=== PATIENT | female | born 1980 | race Caucasian/White ===

== ENCOUNTER 2016-10-23 | Inpatient (IN) | payer OTHER ==
--- NOTE | ~2016-10-23 | PN ---
Unit #: [id number] #: [id number] Patient: VERA CLAYTON [id number] [facility] [address] [place] [address] [id number] MR#: [id number] NAME: VERA CLAYTON ROOM: P173 Age: 36 Sex: F Admission Date: 10/23/2016 : 1980 Attending Physician: Alma Delia Chau M.D. Admitting Physician: Alma Delia Chau M.D. Primary Care Physician: Katya Juarez PROGRESS NOTES DATE OF SERVICE: 10/24/2016 SUBJECTIVE Ms. Clayton is a 36-year-old white female who was seen today and chart was reviewed and case was discussed with the staff. She has been anxious, withdrawn, and rather seclusive to herself. Meanwhile, she has been cooperative with treatment recommendations and has been taking the medications and tolerating them fairly well. MENTAL STATUS EXAMINATION Young white female who was casually dressed with fair personal hygiene, appears to be in no acute distress or discomfort. She was awake and alert on interaction with intact orientation. Her mood was anxious with a congruent affect. She denies any suicidal or homicidal ideations. Her insight and judgment remain slightly impaired. TREATMENT PLAN 1. We will continue her on her current treatment protocol. We will monitor her response to the medications and make further adjustments as needed. 2. We will continue to follow up. Dictated by... Katya Rasmussen/keshav TD: 10/25/2016 23:22 JOB #: [id number] DEANDRA PROGRESS NOTES Page 1 of 1 X Alma Delia Chau MD PROGRESS NOTE
--- NOTE | ~2016-10-23 | DS ---
Unit #: [id number] #: [id number] Patient: VERA CLAYTON [id number] [facility] [address] [place] [address] [id number] I MR#: [id number] NAME: VERA CLAYTON ROOM: 73 Age: 36 Sex: F Admission Date: 10/23/2016 : 1980 Discharge Date: 10/29/2016 Attending Physician: Alma Delia Chau M.D. Primary Care Physician: Chavo Alcaraz M.D. DISCHARGE SUMMARY JOB NOTE: ADDENDUM ADDENDUM Ms. Clayton was scheduled to be discharged on 10/27/2016, however, she was reporting some persistent depression and psychosis and as such, discharge planning was cancelled and her medications were maintained and Seroquel was increased to 50 mg in the morning and afternoon and 300 mg at bedtime and with that adjustment, she was able to show a fairly decent therapeutic response with improvement in psychosis and was calm and was denying any thoughts of wanting to hurt herself and no acute psychosis was noted as well and she was not seen to be a danger to self or anyone else, and as such, it was decided that she will be discharged home and will continue treatment on an outpatient basis. DISCHARGE MEDICATIONS Seroquel 50 mg in the morning and afternoon and 300 mg at bedtime for psychosis. DISCHARGE CONDITION Stable. PROGNOSIS Fair. Dictated by... Katya Rasmussen/anthonyl TD: 10/29/2016 07:26 JOB #: [id number] DISCHARGE SUMMARY Page 1 of 1 X Alma Delia Chau MD X DISCHARGE SUMMARY
--- NOTE | ~2016-10-23 | DS ---
Unit #: [id number] #: [id number] Patient: VERA CLAYTON [id number] [facility] [address] [place] [address] [id number] I MR#: [id number] NAME: VERA CLAYTON ROOM: P173 Age: 36 Sex: F Admission Date: 10/23/2016 : 1980 Discharge Date: Attending Physician: Alma Delia Chau M.D. Primary Care Physician: Chavo Alcaraz M.D. DISCHARGE SUMMARY IDENTIFYING DATA Ms. Clayton is a 36-year-old single white female who is a resident of [place], [place] and is known to us from previous encounter and was self-referred to the hospital on a voluntary basis. DISCHARGE DIAGNOSES Psychiatric: Bipolar disorder, most recent episode depressed, recurrent, moderate, without psychotic features; alcohol dependence, moderate and acute withdrawals; psychostimulant dependence, moderate; opioid abuse, moderate; methamphetamine abuse, moderate. Medical: Asthma. Stressors: Mild psychosocial stressors. HISTORY OF PRESENT ILLNESS Please see initial psychiatric evaluation for details. PAST PSYCHIATRIC HISTORY Please see initial psychiatric evaluation for details. PAST MEDICAL HISTORY Please see initial psychiatric evaluation for details. HOSPITAL COURSE The patient was admitted to the adult chemical dependency and psychiatric unit at [facility] and was oriented to the hospital environment. Routine p.r.n. medications were initiated, and she was started back on her home medications including Seroquel and Lexapro, and opioid detox protocol was initiated and she was closely monitored. She was taking the medications regularly and was tolerating them fairly well and was able to show a decent therapeutic response, and as such, it was decided that she will be discharged home and will continue treatment on an outpatient basis. DISCHARGE MEDICATIONS Seroquel 50 mg in the morning and afternoon and Seroquel 200 mg at bedtime for bipolar, Lexapro 20 mg in the morning for depression, and Neurontin 600 mg t.i.d. for anxiety. DISCHARGE CONDITION Stable. PROGNOSIS Fair. Unit #: [id number] #: [id number] Patient: VERA CLAYTON Dictated by... Alma Delia Chau M.D. IAA/anthonyl TD: 10/27/2016 06:57 JOB #: [id number] DISCHARGE SUMMARY Page 1 of 1 X Alma Delia Chau MD DISCHARGE SUMMARY
--- NOTE | ~2016-10-23 | CO ---
Unit #: [id number] #: [id number] Patient: VERA CLAYTON [id number] [place] [address] [id number] I MR#: [id number] NAME: VERA CLAYTON ROOM: 73 Age: 36 Sex: F Admission Date: 10/23/2016 : 1980 Attending Physician: Alma Delia Chau M.D. Primary Care Physician: Chavo Alcaraz M.D. Consultation Date: 10/26/2016 CONSULTATION REPORT SUBJECTIVE Vera is a 36-year-old who complained of itchy, red eyes that have been matted in the morning. We have been asked to assess and treat. OBJECTIVE GENERAL: Alert, well nourished, in no apparent distress. VITAL SIGNS: Blood pressure 120/70, heart rate 80, respirations 16, temperature 98.6. HEENT: Normocephalic. TMs not viewed. Oral and nasal passages are clear. Conjunctiva injected bilaterally with moderate amounts of dark yellow to green drainage from both eyes. Negative preauricular lymph nodes. ASSESSMENT Bacterial conjunctivitis. PLAN Ciloxan 2 drops each eye t.i.d. x7 days. Dictated by... Malissa Chau PSelwynASelwyn-C. for Katya Estrella/keshav TD: 10/30/2016 00:41 JOB #: [id number] CONSULTATION REPORT Page 1 of 1 X Malissa Chau CONSULTATION REPORT
--- NOTE | ~2016-10-23 | HP ---
Unit #: [id number] #: [id number] Patient: VERA CLAYTON [id number] [place] [address] [id number] I MR#: [id number] NAME: VERA CLAYTON ROOM: P173 Age: 36 Sex: F Admission Date: 10/23/2016 : 1980 Attending Physician: Alma Delia Chau M.D. Admitting Physician: Alma Delia Chau M.D. Primary Care Physician: Chavo Alcaraz M.D. HISTORY AND PHYSICAL HISTORY OF PRESENT ILLNESS The patient is a 36-year-old female admitted to [facility] on 10/23/2016 for alcohol and spice abuse. PAST MEDICAL HISTORY 1. Polysubstance abuse 2. Nicotine dependence PAST SURGICAL HISTORY 1. Pancreatic surgery 2. Spleen surgery SOCIAL HISTORY She is unemployed. She lives alone. She smokes 1 1/2 packs of cigarettes daily. Drinks a liter of vodka per day, 1 gram of heroin per day and uses methamphetamines and spice. FAMILY MEDICAL HISTORY Noncontributory. ALLERGIES No known drug allergies. CURRENT MEDICATIONS Include Seroquel, Lexapro, Neurontin, Zyprexa and Adderall. REVIEW OF SYSTEMS CONSTITUTIONAL: No fever or chills. HEENT: Denies any sore throat, ear pain or runny nose. CARDIOVASCULAR: Denies chest pain, irregular heart rhythm or palpitations. CHEST: Denies shortness of breath or cough. No hemoptysis. GASTROINTESTINAL: Denies nausea, vomiting, diarrhea or chronic constipation. ENDOCRINE: Denies history of increased thirst or urination. No recent significant weight loss or gain. GENITOURINARY: Denies dysuria, frequency, or hematuria. SKIN: Denies any rashes. HEMATOLOGIC: Denies history of increased bleeding or bruising. MUSCULOSKELETAL: Denies any hot, swollen joints. No generalized muscle pain. NEUROLOGIC: Denies problems with vision or speech. No frequent, severe headaches. No numbness, tingling or weakness in any extremities. Denies loss of bladder or bowel control. Unit #: [id number] #: [id number] Patient: VERA CLAYTON PHYSICAL EXAM GENERAL: She is awake, alert and oriented in no acute distress. VITAL SIGNS: Temperature 98.2, heart rate 68, respiration 14, blood pressure 127/63. HEIGHT: 5'8". WEIGHT: 150 pounds. SKIN: Warm and dry without rash or lesion. HEENT: Normocephalic. TMs not viewed. Oral and nasal passages clear. Conjunctivae clear. PERRLA. EOMs intact. NECK: Supple without lymphadenopathy or thyromegaly. HEART: Regular rate and rhythm without murmur. LUNGS: Clear. ABDOMEN: Soft, nontender. : Not done. EXTREMITIES: No evidence of cyanosis, clubbing or edema. Moves all without focal deficit. NEUROLOGICAL: Grossly within normal limits. Cranial Nerves: II: Visual amador are intact. III, IV AND : Extraocular movements are intact. Pupils are equal, round and reactive to light. V: Facial sensation is grossly normal. VII: Facial movements and expression are normal. VIII: Auditory acuity grossly intact. IX, X: Uvula is midline. Phonation is normal. XI: Patient shrugs shoulders and turns head normally. XII: Tongue protrudes in the midline. Sensory and Motor Function: Sensory and motor sensation is grossly normal. Motor: moves all extremities well. IMPRESSION 1. Psychiatric admission. 2. Polysubstance abuse. 3. Nicotine dependence. RECOMMENDATIONS Psychiatric per psychiatrist. MEDICAL: No contraindication to participate in facility activities. MEDICAL PROGNOSIS Good. MEDICAL CONDITION Stable. Dictated by... 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
--- NOTE | ~2016-10-23 | PA ---
Unit #: [id number] #: [id number] Patient: VERA CLAYTON [id number] [facility] [address] [place] [address] [id number] I MR#: [id number] NAME: VERA CLAYTON ROOM: P173 Age: 36 Sex: F Admission Date: 10/23/2016 : 1980 Date of Assessment: Attending Physician: Alma Delia Chau M.D. Admitting Physician: Alma Delia Chau M.D. Primary Care Physician: Chavo Alcaraz M.D. PSYCHIATRIC ASSESSMENT DATE OF SERVICE 10/23/2016. IDENTIFYING DATA Ms. Clayton is a 36-year-old single white female, who is a resident of [place], [place], and is known to us from previous encounter, was self-referred to the hospital on a voluntary basis. CHIEF COMPLAINT "I've been sober for 2 years and now I've been using and drinking." HISTORY OF PRESENT ILLNESS Ms. Clayton is a 36-year-old white female with history of substance abuse and mood disorder, who presented to the hospital with blood alcohol level of 0.146 and a CIWA score of 11 and a COWS of 9 indicating that she has been using 80 dollars worth of spice on a daily basis and has been drinking a liter of vodka a day and reports that she has been decompensating and reports increasing depression, anxiety, and reports that she wants to get help. When approached, the patient was seen to be unkempt and disheveled, in acute distress and discomfort, and did not look well at all and reports that she lost her job and she lives by herself and is in the verge of being evicted and has been having financial problems and has poor social support system and has had significant consequences because of her addiction and reports increasing depression, anxiety, irritability, inability to function or perform activities of daily living, and reports feelings of hopelessness and helplessness, though she denies any suicidal ideations, intent, or plan. SUBSTANCE ABUSE HISTORY The patient reports history of alcohol, cannabis, opioids, amphetamine, and spice abuse and reports that she has been drinking a liter of vodka on a daily basis and has used a gram of IV heroin in the past along with IV methamphetamine, and more recently, she has been using spice quite regularly. PAST PSYCHIATRIC HISTORY The patient has had a history of multiple inpatient chemical dependency treatment at [facility] in addition to being at [facility] and has been to [facility], and review of the medical records indicate that she has been diagnosed and treated for bipolar disorder and is supposed to be on a combination of Seroquel and Lexapro, though it appears that she has been going to some providers and has been getting some Adderall as well in addition despite her extensive history of substance abuse and dependence. Unit #: [id number] #: [id number] Patient: VERA CLAYTON PAST MEDICAL HISTORY Asthma. ALLERGIES No known medication allergies. PERSONAL AND SOCIAL HISTORY A 36-year-old white female, who reports that she is single, unemployed, and essentially homeless and has poor social support system. MENTAL STATUS EXAMINATION Young white female, who was casually dressed with fair personal hygiene, appears to be in no acute distress or discomfort. She was awake and alert on interaction with intact orientation to time, place, and person. Her mood was anxious and depressed with a congruent affect. Her speech was slow and restricted in content. Her thought processes were disorganized with some looseness of associations and suicidal ideations. Her insight and judgment remain significantly impaired. DIAGNOSTIC IMPRESSION Psychiatric: Bipolar disorder, most recent episode depressed, recurrent, moderate, without psychotic features; alcohol dependence, moderate, in acute withdrawal; psychostimulant dependence, moderate; opioid abuse, moderate; and methamphetamine abuse, moderate. Medical: Asthma. Stressors: Moderate psychosocial stressors. TREATMENT PLAN 1. The patient has presented with a history of mood disorder and substance abuse and has been decompensating and will need inpatient hospitalization for detoxification, safety, and stabilization. We will start her on detox protocol. We will closely monitor for any worsening withdrawal symptoms. 2. Supportive therapy was provided to the patient. 3. Safe, structured, and nourishing environment will be provided. ESTIMATED LENGTH OF STAY 5 to 7 days. ABILITY TO HELP SELF Limited. WILLINGNESS TO HELP SELF The patient appears to be willing to help self. STRENGTHS 1. Communicative. 2. Cooperative. PROBLEMS 1. Chronic dysphoric symptoms. 2. Poor social support system. DISCHARGE CRITERIA This will be contingent upon the patient's ability to go through detox without having any significant withdrawal symptoms as well as her ability to stay safe to herself, particularly after discharge from the hospital. Unit #: [id number] #: [id number] Patient: VERA CLAYTON Dictated by... Katya Rasmussen/keshav TD: 10/23/2016 17:02 JOB #: [id number] PSYCHIATRIC ASSESSMENT Page 1 of 1 X Alma Delia Chau MD X PSYCHIATRIC ASSESSMENT
--- NOTE | ~2016-10-23 | PN ---
Unit #: [id number] #: [id number] Patient: VERA CLAYTON [id number] [facility] [address] [place] [address] [id number] I MR#: [id number] NAME: VERA CLAYTON ROOM: P173 Age: 36 Sex: F Admission Date: 10/23/2016 : 1980 Attending Physician: Alma Delia Chau M.D. Admitting Physician: Alma Delia Chau M.D. Primary Care Physician: Katya Juarez NOTES DATE OF SERVICE: 10/25/2016 SUBJECTIVE Ms. Clayton is a 36-year-old white female with substance abuse and mood disorder, who was seen today and chart was reviewed, and case was discussed with the staff. She was lying in the bed and seen to be in no acute distress or discomfort. When I inquired how she is doing, she stated "I feel a lot better." She also added that she has started seeing things and has been hallucinating and as such is unable to do activities of daily living or take care of her personal hygiene and describes herself in no distress or discomfort. Meanwhile, she has been taking medications and tolerating them fairly well with no reported side effects. MENTAL STATUS EXAMINATION Young white female who was casually dressed with fair personal hygiene, appears to be in no acute distress or discomfort. She was awake and alert on interaction with intact orientation. Her mood was anxious with a congruent affect. She denies any suicidal or homicidal ideations though she does report some visual hallucinations. Her insight and judgment remain significantly impaired. TREATMENT PLAN 1. We will continue her on her current medications and treatment protocol. We will monitor her response to the medications and make further adjustments as needed. 2. We will continue to follow up. Dictated by... Katya Rasmussen/keshav TD: 10/26/2016 07:10 JOB #: [id number] Unit #: [id number] #: [id number] Patient: VERA CLAYTON PROGRESS NOTES Page 1 of 1 X Alma Delia Chau MD PROGRESS NOTE
--- NOTE | ~2016-10-23 | PN ---
Unit #: [id number] #: [id number] Patient: VERA CLAYTON [id number] [facility] [address] [place] [address] [id number] MR#: [id number] NAME: VERA CLAYTON ROOM: P173 Age: 36 Sex: F Admission Date: 10/23/2016 : 1980 Attending Physician: Alma Delia Chau M.D. Admitting Physician: Alma Delia Chau M.D. Primary Care Physician: Katya Juarez PROGRESS NOTES DATE 10/28/2016 DISCUSSION Ms. Clayton is a 36-year-old white female who was seen today and chart was reviewed and case was discussed with the staff. She has been exhibiting very manipulative behavior and until yesterday she was stating that she is not feeling any better and that is having auditory and visual hallucinations and feels like she is in DTs and medications were adjusted was increased and now all of a sudden she wants to sign herself out this morning stating that she has to go that medicines are not going to make much difference and that her daughter's birthday is today and I do not feel comfortable her leaving the hospital and tried to educate her about that but she was refusing to accept anything and continues to follow me around and demanding to be discharged and showing very poor insight into her situation and showing no motivation towards treatment and I have a feeling that patient might end up leaving against medical advice. Dictated by... Katya Rasmussen/tish TD: 10/28/2016 20:54 JOB #: [id number] DEANDRA PROGRESS NOTES Page 1 of 1 X Alma Delia Chau MD PROGRESS NOTE
--- NOTE | ~2016-10-23 | PN ---
Unit #: [id number] #: [id number] Patient: VERA CLAYTON [id number] [facility] [address] [place] [address] [id number] I MR#: [id number] NAME: VERA CLAYTON ROOM: P173 Age: 36 Sex: F Admission Date: 10/23/2016 : 1980 Attending Physician: Alma Delia Chau M.D. Admitting Physician: Alma Delia Chau M.D. Primary Care Physician: Katya Juarez PROGRESS NOTES DATE 10/26/2016 DISCUSSION Ms. Clayton is a 36-year-old white female who was seen today and chart was reviewed and case was discussed with the staff. She was been anxious, withdrawn, depressed and seclusive to herself as she was laying in her bed. Meanwhile, she has been cooperative with treatment recommendations as she has been taking the medications and tolerating them fairly well with no reported side effects. MENTAL STATUS EXAMINATION Young white female who was casually dressed with fair personal hygiene, appears to be in no acute distress or discomfort. She was awake and alert on interaction with intact orientation. Her mood was anxious with congruent affect. She denies any suicidal or homicidal ideations. Also, denies any auditory or visual hallucinations. Her insight and judgement remains slightly impaired. TREATMENT PLAN 1. We will continue her on her current medications and treatment protocol. We will monitor her response to the medication and make further adjustments as needed. 2. We will continue to follow up. Dictated by... Katya Rasmussen/juaquin TD: 10/27/2016 01:45 JOB #: [id number] Unit #: [id number] #: [id number] Patient: VERA CLAYTON PROGRESS NOTES Page 1 of 1 X Alma Delia Chau MD PROGRESS NOTE
[2016-10-23 14:10] LABS: URINE APPEARANCE TURBID; URINE BILIRUBIN NEG (NEG); URINE BLOOD NEG (NEG); URINE COLOR YELLOW; URINE GLUCOSE 100 MG/DL (NEG); URINE KETONE TRACE (NEG); URINE LEUKOCYTE ESTERASE NEG (NEG); URINE NITRATE NEG (NEG); URINE PROTEIN NEG (NEG); URINE SPECIFIC GRAVITY 1.022 (1.003-1.035); URINE UROBILINOGEN 0.2 MG/DL (NEG)
[2016-10-23 14:17] LABS: CULTURE INDICATED? NO
[2016-10-23 14:30] LABS: AMPHETAMINE NEG (NEG); BARBITURATES NEG (NEG); BENZODIAZEPINES NEG (NEG); COCAINE NEG (NEG); MARIJUANA NEG (NEG); OPIATES NEG (NEG); TRICYCLIC ANTIDEPRESSANTS POS (NEG); U METHADONE NEG (NEG)
[2016-10-24 12:02] LABS: BASOPHIL# 0.1 X10e3 (0-0.3); EOSINOPHIL% 0.3 % (0.0-7.0); HEMATOCRIT 38.3 % (35.0-45.0); HEMOGLOBIN 12.8 gm/dL (12.0-16.0); LYMPHOCYTE# 4.1 X10e3 (1.0-3.5); LYMPHOCYTE% 28.6 % (17.0-45.0); MEAN CELL VOLUME 91.2 FL (83-96); MEAN CORPUSCULAR HEMOGLOBIN 30.5 PG (28-34); MEAN CORPUSCULAR HGB CONC 33.4 g/dL (30-36); MEAN PLATELET VOLUME 9.1 FL (6.5-11.5); MONOCYTE# 1.3 X10e3 (0-1.0); MONOCYTE% 9.2 % (3.0-12.0); NEUTROPHIL# 8.7 X10e3 (1.5-7.1); NEUTROPHIL% 60.9 % (40-75); PLATELET COUNT 441 X10e3 (140-420); RED CELL DISTRIBUTION WIDTH 15.1 % (11.0-15.5); WHITE BLOOD COUNT 14.3 X10e3 (4.0-10.5)
[2016-10-24 12:04] LABS: DIFF IND NO
[2016-10-24 12:21] LABS: ALBUMIN SERUM 3.7 g/dL (3.5-5.0); BUN/CREATININE RATIO 36.66; CREATININE SERUM 0.6 mg/dL (0.6-1.4); GLOM FILT RATE Estimated 116.4 mL/min (>60); PROTEIN TOTAL SERUM 7.2 g/dL (6.0-8.3)
== END 2016-10-29 10:55 | DRG 885 ==
LOC: P1E 04:17
PROVIDERS: Psychiatry & Neurology Psychiatry
PROC: HZ2ZZZZ Detoxification Services for Substance Abuse Treatment (ICD-10-PCS; principal; 2016-10-23)
DX: F31.32 Bipolar disorder, current episode depressed, moderate (principal); F15.20 Other stimulant dependence, uncomplicated; F10.239 Alcohol dependence with withdrawal, unspecified; F11.10 Opioid abuse, uncomplicated; J45.909 Unspecified asthma, uncomplicated; H10.89 Other conjunctivitis
CPT/HCPCS: 80053; 80307; 81003; 85025

== ENCOUNTER 2016-11-08 16:12 | Inpatient (IN) | payer OTHER ==
--- NOTE | ~2016-11-08 | PN ---
Unit #: [id number] #: [id number] Patient: VERA CLAYTON [id number] [facility] [address] [place] [address] [id number] MR#: [id number] NAME: VERA CLAYTON ROOM: P176 Age: 36 Sex: F Admission Date: 11/09/2016 : 1980 Attending Physician: Alma Delia Chau M.D. Admitting Physician: Alma Delia Chau M.D. Primary Care Physician: Chavo Alcaraz M.D. [facility] PROGRESS NOTES DATE 11/10/2016 DISCUSSION Ms. Clayton is a 26-year-old white female who was seen today and chart was reviewed and case was discussed with the staff. She has been anxious, withdrawn and acutely distress and discomfort as she was laying in her bed on approach and asked how she is doing, she stated "I am dying." She describes herself to be in distress and discomfort as she goes through detox despite being on (1)____opiate current detox protocol. Meanwhile, she has been taking medications and tolerating them fairly well with no reported side effects. MENTAL STATUS EXAMINATION Young white female who was casually dressed with fair personal hygiene, appears to be in no acute distress or discomfort. She was awake and alert with intact orientation. Her mood was anxious with congruent affect. She denies any suicidal or homicidal ideations. Her insight and judgement remains slightly impaired. TREATMENT PLAN 1. We will continue her on her current medications and treatment protocol. We will monitor her response to the medication and make further adjustments as needed. 2. We will continue to follow up. Dictated by... Katya Rasmussen/juaquin TD: 11/10/2016 23:56 JOB #: [id number] Unit #: [id number] #: [id number] Patient: VERA CLAYTON [place] PROGRESS NOTES Page 1 of 1 X Alma Delia Chau MD PROGRESS NOTE
--- NOTE | ~2016-11-08 | CO ---
Unit #: [id number] #: [id number] Patient: VERA CLAYTON [id number] [place] [address] [id number] I MR#: [id number] NAME: VERA CLAYTON ROOM: P176 Age: 36 Sex: F Admission Date: 11/09/2016 : 1980 Attending Physician: Alma Delia Chau M.D. Primary Care Physician: Chavo Alcaraz M.D. Consultation Date: 11/11/2016 CONSULTATION REPORT SUBJECTIVE Vera is a 36-year-old with red irritated eye. It has been matted in the morning. We have been asked to assess and treat. OBJECTIVE GENERAL: Alert, well nourished, in no apparent distress. VITAL SIGNS: Blood pressure 120/72, heart rate 80, respirations 16, temperature 98.6. HEENT: Normocephalic. Conjunctiva slightly injected bilaterally right greater than left. Small amount of discharge noted. ASSESSMENT Conjunctivitis. PLAN Ciloxan 2 drops t.i.d. x7 days. Dictated by... Malissa Chau P.A.-C. for Katya Estrella/keshav TD: 11/12/2016 15:53 JOB #: [id number] CONSULTATION REPORT Page 1 of 1 X Malissa Chau CONSULTATION REPORT
--- NOTE | ~2016-11-08 | HP ---
Unit #: [id number] #: [id number] Patient: VERA CLAYTON [id number] [facility] [address] [place] [address] [id number] MR#: [id number] NAME: VERA CLAYTON ROOM: P176 Age: 36 Sex: F Admission Date: 11/09/2016 : 1980 Attending Physician: Alma Delia Chau M.D. Admitting Physician: Alma Delia Chau M.D. Primary Care Physician: Chavo Alcaraz M.D. HISTORY AND PHYSICAL HISTORY OF PRESENT ILLNESS Vera is a 36 year old, admitted to [facility] because of her continued polysubstance abuse which includes, alcohol, "spice," and IV heroin. The patient was seen and history and physical, dated 10/23/2016 was reviewed. This is current. No changes. Please see history and physical, dated 10/23/2016. Dictated by... Malissa Chau P.A.-C. for Katya Estrella/kami TD: 11/10/2016 08:21 JOB #: [id number] HISTORY AND PHYSICAL Page 1 of 1 X Malissa Chau HISTORY AND PHYSICAL
--- NOTE | ~2016-11-08 | PN ---
Unit #: [id number] #: [id number] Patient: VERA CLAYTON [id number] [facility] [address] [place] [address] [id number] MR#: [id number] NAME: VERA CLAYTON ROOM: P176 Age: 36 Sex: F Admission Date: 11/09/2016 : 1980 Attending Physician: Alma Delia Chau M.D. Admitting Physician: Alma Delia Chau M.D. Primary Care Physician: Chavo Alcaraz M.D. [place] PROGRESS NOTES DATE 11/12/2016 DISCUSSION Ms. Clayton is a 36-year-old white female who was seen today and chart was reviewed and case was discussed with the staff. She has been anxious, withdrawn and rather seclusive to herself. Meanwhile, she has been cooperative with treatment recommendations and has been taking medications and tolerating them fairly well with no reported side effects. MENTAL STATUS EXAMINATION Young white female who was casually dressed with fair personal hygiene and appears to be in distress and discomfort. She was awake and alert with impaired attention and concentration. Her mood was anxious with congruent affect. She denies any suicidal or homicidal ideation. Her insight and judgement remains significantly impaired. TREATMENT PLAN 1. Will continue on current medications and treatment protocol. Will monitor response and make further adjustments as needed. 2. Will continue to follow up. Dictated by... Alma Delia Chau M.D. IAA/tish TD: 11/12/2016 15:13 JOB #: [id number] Unit #: [id number] #: [id number] Patient: VERA CLAYTON PROGRESS NOTES Page 1 of 1 X Alma Delia Chau MD PROGRESS NOTE
--- NOTE | ~2016-11-08 | PN ---
Unit #: [id number] #: [id number] Patient: VERA CLAYTON [id number] [facility] [address] [place] [address] [id number] I MR#: [id number] NAME: VERA CLAYTON ROOM: P176 Age: 36 Sex: F Admission Date: 11/09/2016 : 1980 Attending Physician: Alma Delia Chau M.D. Admitting Physician: Alma Delia Chau M.D. Primary Care Physician: Katya Juarez PROGRESS NOTES DATE 11/11/2016 DISCUSSION Ms. Clayton is a 36-year-old white female with substance abuse and mood disorder who was seen today and chart was reviewed and case was discussed with the staff who report patient has been anxious, withdrawn, depressed, seclusive to herself. Meanwhile, she has been cooperative with treatment recommendations and has been taking medications and tolerating them fairly well with no reported side effects. MENTAL STATUS EXAMINATION Young white female who was casually dressed with fair personal hygiene and appears to distress or discomfort. She was awake and alert with impaired attention and concentration. Her mood was anxious with congruent affect. She denies any suicidal or homicidal ideations. Her insight and judgement remains slightly impaired. TREATMENT PLAN 1. Will continue on current medications and treatment protocol. Will monitor her response to the medications and make further adjustments as needed. 2. Will continue to follow up. Dictated by... Katya Rasmussen/tish TD: 11/11/2016 17:49 JOB #: [id number] Unit #: [id number] #: [id number] Patient: VERA CLAYTON [place] PROGRESS NOTES Page 1 of 1 X Alma Delia Chau MD PROGRESS NOTE
--- NOTE | ~2016-11-08 | PN ---
Unit #: [id number] #: [id number] Patient: VERA CLAYTON [id number] [facility] [address] [place] [address] [id number] I MR#: [id number] NAME: VERA CLAYTON ROOM: P176 Age: 36 Sex: F Admission Date: 11/09/2016 : 1980 Attending Physician: Alma Delia Chau M.D. Admitting Physician: Alma Delia Chau M.D. Primary Care Physician: Katya Juarez PROGRESS NOTES DATE 11/14/2016 DISCUSSION Ms. Clayton is a 36-year-old white female who was seen today and chart was reviewed and case was discussed with the staff. She has been anxious, withdrawn, depressed and seclusive to herself. Meanwhile, she has been cooperative with treatment recommendations and has been taking the medications and tolerating them fairly well with no reported side effects. MENTAL STATUS EXAMINATION Young white female who was casually dressed with fair personal hygiene, appears to be in no acute distress or discomfort. She was awake and alert on interaction with intact orientation. Her mood was anxious with congruent affect. She denies any suicidal or homicidal ideations. Also, denies any auditory or visual hallucinations. Her insight and judgement remains slightly impaired. TREATMENT PLAN 1. We will continue her on her current medications and treatment protocol. We will monitor her response to the medication and make further adjustments as needed. 2. We will continue to follow up. Dictated by... Katya Rasmussen/juaquin TD: 11/14/2016 22:21 JOB #: [id number] Unit #: [id number] #: [id number] Patient: VERA CLAYTON [place] PROGRESS NOTES Page 1 of 1 X Alma Delia Chau MD PROGRESS NOTE
--- NOTE | ~2016-11-08 | PN ---
Unit #: [id number] #: [id number] Patient: VERA CLAYTON [id number] [facility] [address] [place] [address] [id number] I MR#: [id number] NAME: VERA CLAYTON ROOM: P176 Age: 36 Sex: F Admission Date: 11/09/2016 : 1980 Attending Physician: Alma Delia Chau M.D. Admitting Physician: Alma Delia Chau M.D. Primary Care Physician: Katya Juarez PROGRESS NOTES DATE OF SERVICE: 11/13/2016 Ms. Clayton is a 36-year-old white female who was seen today and chart was reviewed and case was discussed with the staff. The patient is sitting in her bed and crying, reporting that she has been feeling very depressed and anxious and is not feeling good. Meanwhile, she has come out of the detox and still reports persistent anxiety, depression and feeling funny, weak and in despair. MENTAL STATUS EXAMINATION Young white female, who was casually dressed with fair personal hygiene, appears to be some distress and discomfort. The patient is awake and alert with intact orientation. Her mood was anxious and depressed with labile affect. Her speech is slow and restricted in content. She reports having suicidal ideation, denies homicidal ideation. Her insight and judgment remain slightly impaired. TREATMENT PLAN 1. We will continue on current treatment protocol. We will adjust her medications and will try an anxiolytic, antidepressant therapy. 2. We will continue to follow up. Dictated by... Katya Rasmussen/keshav TD: 11/13/2016 14:29 JOB #: [id number] [facility] PROGRESS NOTES Page 1 of 1 X Alma Delia Chau MD PROGRESS NOTE
--- NOTE | ~2016-11-08 | PA ---
Unit #: [id number] #: [id number] Patient: VERA CLAYTON [id number] [facility] [address] [place] [address] [id number] I MR#: [id number] NAME: VERA CLAYTON ROOM: P176 Age: 36 Sex: F Admission Date: 11/09/2016 : 1980 Date of Assessment: Attending Physician: Alma Delia Chau M.D. Admitting Physician: Alma Delia Chau M.D. Primary Care Physician: Chavo Alcaraz M.D. PSYCHIATRIC ASSESSMENT DATE OF SERVICE 11/09/2016. IDENTIFYING DATA Ms. Clayton is a 36-year-old single white female, who is a resident of [place], [place], and is very well known to us from previous multiple encounters and was just discharged from my care a little less than 2 weeks ago and was transferred back to us from the emergency room. CHIEF COMPLAINT "I've been drinking excessively and using heroin." HISTORY OF PRESENT ILLNESS Ms. Clayton is a 36-year-old white female with history of substance abuse and mood disorder, who was taken to the emergency room at [facility], where she has stated that she has been drinking excessively and using heroin, "I'm trying to get some help." The patient reports that she has been drinking up to 2 L of vodka a day and using a gram of IV heroin on a daily basis and "I don't even know how much I drank today, it is enough that I don't even remember [facility], but I'm sure it was at least a liter." The patient reports that the last 24 hours, she used half a gram of heroin and was seen to be a poor historian regarding her use. When [facility], she reports she used 2 g of heroin on this stay in the ER and she was seen to be intoxicated and medically unstable and was sent to the emergency room at [facility] for medical clearance where the ER staff reports that she told the nursing staff there that she used 2 points of heroin on this stay. During the tele health assessment, the patient stated that she used half a gram and maintained suicidal statements stating "I just want to overdose." She reports that she is earlier and that was her suicide attempt and as such, she was placed on 72 hours hold at the emergency room at [facility], and was transferred back to us after medical clearance. SUBSTANCE ABUSE HISTORY The patient reports extensive history of substance abuse including alcohol, cannabis, opioids, methamphetamine, and spice and currently alcohol and opioids appear to be her drug of choice, though she reports that she was using a gram of heroin a day and has been using 2 L of vodka a day. PAST PSYCHIATRIC HISTORY The patient has had history of inpatient chemical dependency treatment at Unit #: [id number] #: [id number] Patient: VERA CLAYTON [facility] several times in addition to being at [facility], and [facility], and review of the medical records indicate currently she is not active in any treatment program, is not seeing a psychiatrist. PAST MEDICAL HISTORY The patient's medical history is significant for asthma and hepatitis C. ALLERGIES No known medication allergies. PERSONAL AND SOCIAL HISTORY A 36-year-old white female, who reports that she is single, unemployed, and lives by herself and has poor social support system. MENTAL STATUS EXAMINATION Young white female who was casually dressed with fair personal hygiene, appears to be in no acute distress or discomfort. She was awake and alert on interaction with intact orientation. Her mood was anxious and depressed with a congruent affect. Her speech was slow and restricted in content. Her thought processes were disorganized with some looseness of associations and flight of ideas and suicidal ideations. Her insight and judgment remain significantly impaired. DIAGNOSTIC IMPRESSION Psychiatric: Major depressive disorder, recurrent, moderate, without psychotic features; alcohol dependence, moderate and acute withdrawals; opioid dependence, moderate and acute withdrawals. Medical: Asthma and hepatitis C. Stressors: Moderate psychosocial stressors. TREATMENT PLAN 1. The patient has presented with history of substance abuse and mood disorder, and has been decompensating and will need inpatient hospitalization for safety and stabilization. We will start her back on her home medications and detox protocol will be initiated as well. 2. Supportive therapy was provided to the patient. 3. Safe, structured, and nourishing environment will be provided. ESTIMATED LENGTH OF STAY 5 to 7 days. ABILITY TO HELP SELF Limited. WILLINGNESS TO HELP SELF The patient appears to be willing to help self. STRENGTHS 1. Communicative. 2. Cooperative. PROBLEMS 1. Chronic dysphoric symptoms. 2. Chronic chemical dependency. 3. Poor social support system. DISCHARGE CRITERIA This will be contingent upon the patient's ability to go through detox without having any significant withdrawal symptoms as well as her ability Unit #: [id number] #: [id number] Patient: VERA CLAYTON to stay safe to herself, particularly after discharge from the hospital. Dictated by... Alma Delia Chau M.D. NERY/keshav TD: 11/09/2016 07:04 JOB #: [id number] PSYCHIATRIC ASSESSMENT Page 1 of 1 X Alma Delia Chau MD X PSYCHIATRIC ASSESSMENT
--- NOTE | ~2016-11-08 | DS ---
Unit #: [id number] #: [id number] Patient: VERA CLAYTON [id number] [facility] [address] [place] [address] [id number] MR#: [id number] NAME: VERA CLAYTON ROOM: P176 Age: 36 Sex: F Admission Date: 11/09/2016 : 1980 Discharge Date: 11/16/2016 Attending Physician: Alma Delia Chau M.D. Primary Care Physician: Chavo Alcaraz M.D. DISCHARGE SUMMARY ADDENDUM REPORT Ms. Augustin was scheduled to be discharged yesterday; however, she did not have a proper discharge planning as she was wanting to go to a snf level of care, and medical social worker are working on making refills and setting it up and as such it was decided that discharge planning will be delayed for another twenty-four hours to have better prognosis and rehab was arranged, she will be transferred to the facility. DISCHARGE CONDITION Stable. PROGNOSIS Fair. Dictated by... Katya Rasmussen/kami TD: 11/17/2016 05:24 JOB #: [id number] DISCHARGE SUMMARY Page 1 of 1 X Alma Delia Chau MD X DISCHARGE SUMMARY
[2016-11-09 09:55] LABS: BASOPHIL# 0.1 X10e3 (0-0.3); BASOPHIL% 0.7 % (0-2.5); EOSINOPHIL# 0.2 X10e3 (0-0.7); EOSINOPHIL% 1.7 % (0.0-7.0); HEMATOCRIT 37.7 % (35.0-45.0); HEMOGLOBIN 12.4 gm/dL (12.0-16.0); LYMPHOCYTE# 2.7 X10e3 (1.0-3.5); LYMPHOCYTE% 23.6 % (17.0-45.0); MEAN CELL VOLUME 93.4 FL (83-96); MEAN CORPUSCULAR HEMOGLOBIN 30.8 PG (28-34); MONOCYTE# 1.7 X10e3 (0-1.0); MONOCYTE% 14.9 % (3.0-12.0); NEUTROPHIL# 6.7 X10e3 (1.5-7.1); NEUTROPHIL% 59.1 % (40-75); PLATELET COUNT 347 X10e3 (140-420); RED BLOOD COUNT 4.04 X10e (3.90-5.30); RED CELL DISTRIBUTION WIDTH 16.2 % (11.0-15.5); WHITE BLOOD COUNT 11.4 X10e3 (4.0-10.5)
[2016-11-09 10:07] LABS: DIFF IND NO
[2016-11-09 10:11] LABS: ALBUMIN SERUM 3.7 g/dL (3.5-5.0); CALCIUM SERUM 8.8 mg/dL (8.4-10.2); CREATININE SERUM 0.5 mg/dL (0.6-1.4); GLOM FILT RATE Estimated 123.7 mL/min (>60); POTASSIUM 3.8 mmol/L (3.5-5.1); PROTEIN TOTAL SERUM 6.9 g/dL (6.0-8.3)
[2016-11-10 12:50] LABS: URINE APPEARANCE CLOUDY; URINE BLOOD 3+ (NEG); URINE COLOR DK YELLOW; URINE GLUCOSE NEG (NEG); URINE KETONE NEG (NEG); URINE LEUKOCYTE ESTERASE TRACE (NEG); URINE NITRATE NEG (NEG); URINE PROTEIN TRACE (NEG); URINE SPECIFIC GRAVITY 1.029 (1.003-1.035)
[2016-11-10 12:52] LABS: URINE BACTERIA AUWI NEG (NEGATIVE); URINE SQUAMOUS EPITHELIAL CELL FEW /[HPF]
[2016-11-10 12:53] LABS: URINE BILIRUBIN NEG (NEG)
[2016-11-10 13:03] LABS: URINE CRYSTALS CALCIUM OXALATE /[HPF]
== END 2016-11-16 10:00 | disposition home or self-care (01) | DRG 885 ==
LOC: P1E 11-09 04:10
PROVIDERS: Psychiatry & Neurology Psychiatry
PROC: HZ2ZZZZ Detoxification Services for Substance Abuse Treatment (ICD-10-PCS; principal; 2016-11-09)
DX: F33.1 Major depressive disorder, recurrent, moderate (principal); F10.239 Alcohol dependence with withdrawal, unspecified; F11.23 Opioid dependence with withdrawal; J45.909 Unspecified asthma, uncomplicated; B19.20 Unspecified viral hepatitis C without hepatic coma; H10.9 Unspecified conjunctivitis; Y90.8 Blood alcohol level of 240 mg/100 ml or more
CPT/HCPCS: 80053; 81003; 85025; J2550

== ENCOUNTER 2016-11-08 17:21 | Emergency (ER) | payer OTHER ==
--- NOTE | ~2016-11-08 | EKG ---
PATIENT: VERA CLAYTON UNIT #: [id number] Ventricular Rate: 78 BPM Atrial Rate: 78 BPM P-R Interval: 146 ms QRS Duration: 90 ms Q-T Interval: 376 ms QTC Calculation(Bezet): 428 ms P [place]: 65 degrees Calculated R [place]: 55 degrees Calculated T [place]: 49 degrees Diagnosis Line: Normal sinus rhythm Diagnosis Line: Normal ECG Diagnosis Line: No previous ECGs available Diagnosis Line: Confirmed by ALICIA CASTILLO MD ([id number]) on Diagnosis Line: 11/08/2016 10:23:35 PM INTERPRETING MD: COURTNEY
[2016-11-08 19:19] LABS: ALBUMIN SERUM 4.1 g/dL (3.5-5.0); ALKALINE PHOSPHATASE 137 U/L (32-92); ALT (SGPT) 270 U/L (10-40); AST (SGOT) 282 U/L (10-42); BILIRUBIN, DIRECT 0.1 mg/dL (0.0-0.2); BILIRUBIN,INDIRECT 0.4 mg/dL (0.0-0.9); BILIRUBIN,TOTAL 0.5 mg/dL (0.2-2.0); BLOOD UREA NITROGEN 6 mg/dL (9-23); CALCIUM SERUM 8.6 mg/dL (8.4-10.2); CARBON DIOXIDE 18 mmol/L (22-31); CHLORIDE 110 mmol/L (100-111); CREATININE SERUM 0.6 mg/dL (0.6-1.4); GLOM FILT RATE Estimated 116.4 mL/min (>60); GLUCOSE FASTING 104 mg/dL (70-110); POTASSIUM 3.1 mmol/L (3.5-5.1); PROTEIN TOTAL SERUM 7.9 g/dL (6.0-8.3); SALICYLATE <4.0 mg/dL; SODIUM 140 mmol/L (135-145)
[2016-11-08 19:21] LABS: ACETAMINOPHEN <10 ug/mL
[2016-11-08 19:25] LABS: ALCOHOL BLOOD 308 mg/dL (0)
[2016-11-08 20:36] LABS: AMPHETAMINE NEG (NEG); BARBITURATES NEG (NEG); BENZODIAZEPINES NEG (NEG); COCAINE NEG (NEG); MARIJUANA POS (NEG); OPIATES NEG (NEG); TRICYCLIC ANTIDEPRESSANTS POS (NEG); U METHADONE NEG (NEG)
== END 2016-11-09 03:02 ==
LOC: CED 17:21
PROVIDERS: Emergency Medicine
DX: F10.10 Alcohol abuse, uncomplicated (principal); F32.9 Major depressive disorder, single episode, unspecified; Y90.8 Blood alcohol level of 240 mg/100 ml or more
CPT/HCPCS: 80048; 80076; 80307; 93005; 99285; G0480; J1885; J2405; J2765